=== PATIENT | female | born 1995 ===

== ENCOUNTER 2018-09-01 13:12 | Inpatient (IN) | payer MEDICAID, SELFPAY ==
[2018-09-01 13:42] VITALS: BMI 28.1
[2018-09-01] MEDS ORDERED: Labetalol 5mg/ml (4ml) IVP STA (13:48)
[2018-09-01] MEDS ORDERED: Magnesium Sul 40GM/1L SW 40 GM/1,000 ML ML IV ONE (13:49)
[2018-09-01] MEDS ORDERED: Magnesium Sulfate 4 gm/100 ml 4 GM/100 ML BAG IV ONE (13:49)
[2018-09-01] MEDS: Lactated Ringer's 1,000 ML IV SCH (14:15)
[2018-09-01] MEDS: Betamethasone Soluspan 30 mg/5mL Inj Susp IM SCH (14:34)
[2018-09-01 14:44] LABS: BASO # 0.1 K/uL (0.0-0.2); BASO % 0.9 % (0.0-2.0); EOS % 0.7 % (0.0-4.0); HEMOGLOBIN 12.7 g/dL (12.0-16.0); LYMPH # 2.1 K/uL (1.0-4.3); MEAN CELL VOLUME 85.1 fl (81.0-99.0); MEAN CORPUSCULAR HEMOGLOBIN 28.5 pg (27.0-31.0); MEAN CORPUSCULAR HGB CONC 33.5 g/dL (33.0-37.0); MEAN PLATELET VOLUME 11.8 fl (7.2-11.7); MONO # 0.6 K/uL (0.0-0.8); MONO % 9.1 % (0.0-10.0); NEUT % 58.3 % (50.0-75.0); NRBC % 0.1 % (0.0-0.0); RBC 4.45 Mil/uL (3.80-5.20); RED CELL DISTRIBUTION WIDTH 13.6 % (11.5-14.5); WHITE BLOOD COUNT 6.8 K/uL (4.8-10.8)
[2018-09-01 14:52] LABS: ALB/GLOB RATIO 1.2 (1.0-2.1); ALBUMIN 3.8 g/dL (3.5-5.0); BLOOD UREA NITROGEN 12 mg/dl (7-17); CALCIUM 9.4 mg/dL (8.4-10.2); GFR NON-AFRICAN AMERICAN > 60
[2018-09-01 14:54] LABS: ALT/SGPT 35 U/L (9-52); AST/SGOT 44 U/L (14-36)
[2018-09-01 16:22] LABS: SQUAMOUS EPITHIAL < 1 /hpf (0-5); URINE BACTERIA RARE (<OCC); URINE BILIRUBIN NEGATIVE (NEGATIVE); URINE BLOOD NEGATIVE (NEGATIVE); URINE CLARITY CLEAR (Clear); URINE COLOR STRAW (YELLOW); URINE GLUCOSE (UA) NEG (NEGATIVE); URINE LEUKOCYTE ESTERASE NEG Leu/uL (Negative); URINE PROTEIN NEGATIVE (NEGATIVE); URINE UROBILINOGEN 0.2-1.0 mg/dL (0.2-1.0)
--- NOTE | 2018-09-01 20:08 | OBADHP ---
Datetime: 09/01/2018 13:26 IP Chief Complaint Other: Steroid shot, Elevated BP Admit Comment, IP Provider: HPI: 23 YO with IUP at EGA 35.5 wks as per LMP 12/25/17, MARYSE 10/01/18 , who presents to [facility] sent by her primary provider to get first dose of Steroid shot as per MFM recommendation due to IUGR. Also incidentally during today's care visit patient was fou nd to have elevated BP in the 150s for the first time, patient denies JOSHUA, CP, SOB, abdominal pain, di zziness, or other symptoms of preeclampsia. Patient denies VB, LOF, CONTX. Patient endorses +FM. ROS: Unremarkable, except as per HPI. Care Provider: Dr Nobles PMH: Denies FMH: None SocialHx: Denies Tobacco/ETOH/Rec drug use. SURG: None Allergies: NKA MEDS: Vit LABS: HIV neg, RPR neg. GBS pending. ABO O+, ab neg PE GEN: NAD, appears comfortable HEENT: NCAT RESP: CTA b/l CV: RRR, S1S2 present, no murmurs Abdomen: Gravid EXT: No edema A/P 23 YO with IUP at EGA 35.5 wks as per LMP 12/25/17, MARYSE 10/01/18 presenting today sent by PMD f or Betamethasone first dose due to IUGR. Also patient found to have elevated BP today during visit and on initial evaluation in L_ D Impression: Preeclampsia Plan -Observation with monitoring of maternal VS: special attention to BP- SBP 150s -FHR monitoring: noted in 140s range -CBC stat -CMP stat -LDH stat -Labetalol 20 mg IVP x 1 dose, repeat BP in 10 min -Betamethasone 12 mg IM x1 -IVF LR -MAg IV as per preeclampsia tx Case discussed with attending MD Eryn PGY1 Patient was seen with the resident I agree with the note Lungs - PN: Normal Heart - PN: Normal General - PN: Normal FHR - Baseline A Provider: 140 Comments, ACOG Physical Exam: see triage comments IP Hx Assessment: The History has been Reviewed and is Current Vital Signs Provider: Reviewed Vital Signs Provider Details: BP 158/103 IP Chief Complaint: Other NICHD Accel Fetus A IP Provider: [id number] FHR Category Provider Fetus A: Category I NICHD Decel Fetus A IP Provider: None EGA AdmitDate IP: 35.5 IP Adm Impression: , intrauterine IP Admit Plan: Observation/Evaluation
[2018-09-02] MEDS: Betamethasone Soluspan 30 mg/5mL Inj Susp IM SCH (14:38)
[2018-09-02] MEDS ORDERED: Betamethasone Soluspan 30 mg/5mL Inj Susp IM ONE (14:38)
--- NOTE | 2018-09-02 16:23 | US ---
Date of service: 09/02/2018 PROCEDURE: Limited Ob ultrasound HISTORY: Follow up IUGR COMPARISON: None TECHNIQUE: Transvaginal pelvic ultrasound was performed. FINDINGS: Single live intrauterine fetus in cephalic presentation. Placenta is anterior. The cervical length is 2.8 cm. heart rate is 130 BPM. biophysical profile scoring: breathing movements: 2 movements: 2 tones: 2 Amniotic Fluid: 2 Total score: 8/8 IMPRESSION: Biophysical profile score is normal with a total score of 8/8.
--- NOTE | 2018-09-02 20:39 | OBPN ---
Datetime: 09/02/2018 20:36 IP Progress Plan: Continue present management IP Progress Note Comment: Patient's heart tracing category 1 and biophysical profile 8 out of 8. Patient without complaints at this time. Patient with a few isolated elevated blood pressures. Due to this, plan to continue observation and start 24-hour urine collection. I discussed plan with patient and all patient questions answered. Datetime: 09/02/2018 12:48 IP Progress Impression: Gest. HTN/PreEclampsia/Eclampsia FHR - Baseline A Provider: 140 Vital Signs Provider: Reviewed; Within Normal Limits Vital Signs Provider Details: BP 12PM 116/72 WNL NICHD Accel Fetus A IP Provider: 15X15 FHR Category Provider Fetus A: Category I NICHD Variability Prov Fetus A: Moderate 6-25bpm Datetime: 09/02/2018 09:54 NICHD Decel Fetus A IP Provider: None
[2018-09-03 19:41] LABS: URINE 24 HOUR TOTAL PROTEIN 552.5 mg/24hr (42-225)
[2018-09-03] MEDS ORDERED: Lactated Ringer's 1,000 ML IV ONE (20:05)
[2018-09-03] MEDS ORDERED: Magnesium Sulfate 4 gm/100 ml 4 GM/100 ML BAG IV ONE (20:08)
[2018-09-03] MEDS ORDERED: Magnesium Sul 40GM/1L SW 40 GM/1,000 ML ML IV ONE (20:08)
[2018-09-03] MEDS ORDERED: Lactated Ringer's 1,000 ML IV SCH (20:15)
[2018-09-03] MEDS ORDERED: Penicillin G Potassium 5 MU in Sodium Chloride 0.9% 50 ML IVPB ONE (21:24)
[2018-09-03] MEDS: Lactated Ringer's 1,000 ML IV SCH (21:35)
[2018-09-03] MEDS ORDERED: Oxytocin 30 UNIT in NS 500 ml 30 UNITS/500 ML BAG IV ONE (21:37)
[2018-09-03 21:44] LABS: BASO % 0.4 % (0.0-2.0); LYMPH # 1.9 K/uL (1.0-4.3); LYMPH % 20.5 % (20.0-40.0); MEAN CELL VOLUME 84.2 fl (81.0-99.0); MEAN CORPUSCULAR HEMOGLOBIN 28.5 pg (27.0-31.0); MEAN CORPUSCULAR HGB CONC 33.9 g/dL (33.0-37.0); MEAN PLATELET VOLUME 11.1 fl (7.2-11.7); MONO # 0.8 K/uL (0.0-0.8); MONO % 8.3 % (0.0-10.0); NEUT # 6.6 K/uL (1.8-7.0); NEUT % 70.8 % (50.0-75.0); NRBC % 0.1 % (0.0-0.0); RBC 4.2 Mil/uL (3.80-5.20); RED CELL DISTRIBUTION WIDTH 13.6 % (11.5-14.5); WHITE BLOOD COUNT 9.4 K/uL (4.8-10.8)
[2018-09-03] MEDS ORDERED: OXYTOCIN/0.9 % NS 20 UNIT/1,000 ML BAG IV SCH (21:45)
[2018-09-03 21:46] LABS: INR 0.8
[2018-09-03 22:10] LABS: PROTHROMBIN TIME 9.4 Seconds (9.8-13.1)
[2018-09-03 22:25] LABS: ALB/GLOB RATIO 1.2 (1.0-2.1); ALBUMIN 3.7 g/dL (3.5-5.0); BILIRUBIN,DIRECT 0.2 mg/ml (0.0-0.4); URIC ACID 6.6 mg/Dl (2.2-7.5)
[2018-09-03 23:23] LABS: SQUAMOUS EPITHIAL 1 /hpf (0-5); URINE BACTERIA OCC (<OCC); URINE BILIRUBIN NEGATIVE (NEGATIVE); URINE BLOOD NEGATIVE (NEGATIVE); URINE CLARITY CLEAR (Clear); URINE COLOR STRAW (YELLOW); URINE GLUCOSE (UA) NEG (NEGATIVE); URINE LEUKOCYTE ESTERASE NEG Leu/uL (Negative); URINE PROTEIN NEGATIVE (NEGATIVE); URINE UROBILINOGEN 0.2-1.0 mg/dL (0.2-1.0)
[2018-09-04 03:49] VITALS: O2SAT 98
[2018-09-04] MEDS: Lactated Ringer's 1,000 ML IV SCH ×3 (08:08→21:20)
[2018-09-04] MEDS: Magnesium Sul 40GM/1L SW 40 GM/1,000 ML ML IV ONE (08:49)
--- NOTE | 2018-09-04 10:16 | OBHP ---
Datetime: 09/03/2018 20:31 IP Adm Impression: , intrauterine IP Admit Plan: Admit to unit; Initiate labor induction protocol Admit Comment, IP Provider: 23 yo Female G1PO 36wk IUGR have been observed in PAT for past 2 day s due to uncontrolled HTn/Pre-eclampsia, WIll be admitted to L_D for induction of labor. During her s olivia patient blood pressure fluctuate in th 150s ( highest 163s/101). She have received Mg, fluid and have been closed monitored for any exacerbation. Due to her uncontrolled BP and IUGR, Delivery overwe ighs continuation of . Otherwise patient have no complains its er LMP 12/25/17, MARYSE 10/01/18, who presents to [facility] sent by her primary provider to get first dose of Steroid shot as per MFM recommendation due to IUGR. Otherwise patient denies JOSHUA, CP, SOB, abdominal pain, dizziness, or o ther symptoms of preeclampsia. Patient denies VB, LOF, ROS: Unremarkable, except as per HPI. Care Provider: Dr Nobles PMH: Denies FMH: None SocialHx: Denies Smoke,drink drug use. SURG: None Allergies: NKA MEDS: Vit LABS: HIV neg, RPR neg. GBS pending. ABO O+, ab neg PE GEN: NAD, tearful HEENT: NCAT RESP: CTA b/l CV: RRR, S1S2 present, no murmurs Abdomen: Gravid EXT: No edema A/P 23 yo Female G1PO 36wk IUGR, WIll be admitted to L_D for induction of labor due labile BP, with pr eeclampsia, and IUGR. Plan - Monitor BP, IF >165/105O -CBC stat -CMP stat -LDH stat - Preeclampsia work up -IVF LR -MAg IV as per preeclampsia tx - Cytotec 50mcg Q4h -Penecillin when active labor for GBS proph Ysabri PGY1 Case discussed with Dr Spencer Attending Note. Patient was seen and examined with Resident and I agree with the above finding Pelvic Type - PN: Adequate Extremities - PN: Normal Abdomen - PN: Normal Back - PN: Normal Breast - PN: Not Done Lungs - PN: Normal Heart - PN: Normal Thyroid - PN: Normal Neurologic - PN: Normal HEENT - PN: Normal General - PN: Normal Presentation-Admit: Vertex FHR - Baseline A Provider: 135 Comments, ACOG Physical Exam: Heart no extra heart sound Lung clear Abd nontender BS+ Cervix 1, 40, -3 Gestation - Est Wks by US: 36.0 EGA AdmitDate IP: 36.0 Vital Signs Provider: Reviewed Vital Signs Provider Details: High blood pressure IP Indication for Induction: IUGR; Gest. HTN/PreEclampsia/Eclampsia IP Chief Complaint: Signs/Symptoms Gestational HTN NICHD Variability Prov Fetus A: Moderate 6-25bpm NICHD Accel Fetus A IP Provider: 15X15 FHR Category Provider Fetus A: Category I NICHD Decel Fetus A IP Provider: None Dilatation, Provider: 1 Effacement, Provider: 40 Station, Provider: -3 Genitourinary Exam: Normal DTRs - PN: Normal
--- NOTE | 2018-09-04 10:23 | OBADHP ---
Datetime: 09/04/2018 10:21 Vital Signs Provider: Reviewed Datetime: 09/03/2018 20:31 Admit Comment, IP Provider: 23 yo Female G1PO 36wk IUGR have been observed in th PAT for past 2 day s due to uncontrolled HTn/Pre-eclampsia, WIll be admitted to L_D for induction of labor. During her s olivia patient blood pressure fluctuate in th 150s ( highest 163s/101). She have received Mg, fluid and have been closed monitored for any exacerbation. Due to her uncontrolled BP and IUGR, Delivery overwe ighs continuation of . Otherwise patient have no complains its er LMP 12/25/17, MARYSE 10/01/18, who presents to [facility] sent by her primary provider to get first dose of Steroid shot as per MFM recommendation due to IUGR. Otherwise patient denies JOSHUA, CP, SOB, abdominal pain, dizziness, or o ther symptoms of preeclampsia. Patient denies VB, LOF, ROS: Unremarkable, except as per HPI. Care Provider: Dr Nobles PMH: Denies FMH: None SocialHx: Denies Smoke,drink drug use. SURG: None Allergies: NKA MEDS: Vit LABS: HIV neg, RPR neg. GBS pending. ABO O+, ab neg PE GEN: NAD, tearful HEENT: NCAT RESP: CTA b/l CV: RRR, S1S2 present, no murmurs Abdomen: Gravid EXT: No edema A/P 23 yo Female G1PO 36wk IUGR, WIll be admitted to L_D for induction of labor due labile BP, with pr eeclampsia, and IUGR. Plan - Monitor BP, IF >165/105O -CBC stat -CMP stat -LDH stat - Preeclampsia work up -IVF LR -MAg IV as per preeclampsia tx - Cytotec 50mcg Q4h -Penecillin when active labor for GBS proph Ysabri PGY1 Case discussed with Dr Spencer Attending Note. Patient was seen and examined with Resident and I agree with the above Plan Pelvic Type - PN: Adequate Extremities - PN: Normal Abdomen - PN: Normal Back - PN: Normal Breast - PN: Not Done Lungs - PN: Normal Heart - PN: Normal Thyroid - PN: Normal Neurologic - PN: Normal HEENT - PN: Normal General - PN: Normal Presentation-Admit: Vertex FHR - Baseline A Provider: 135 Comments, ACOG Physical Exam: Heart no extra heart sound Lung clear Abd nontender BS+ Cervix 1, 40, -3 Gestation - Est Wks by US: 36.0 Vital Signs Provider Details: High blood pressure IP Chief Complaint: Signs/Symptoms Gestational HTN NICHD Variability Prov Fetus A: Moderate 6-25bpm NICHD Accel Fetus A IP Provider: [id number] FHR Category Provider Fetus A: Category I NICHD Decel Fetus A IP Provider: None Dilatation, Provider: 1 Effacement, Provider: 40 Station, Provider: -3 Genitourinary Exam: Normal DTRs - PN: Normal EGA AdmitDate IP: 36.0 IP Adm Impression: , intrauterine IP Admit Plan: Admit to unit; Initiate labor induction protocol
--- NOTE | 2018-09-04 11:27 | OBPN ---
Datetime: 09/04/2018 10:21 Dilatation, Provider: Ft Effacement, Provider: 40 Station, Provider: -3 Datetime: 09/04/2018 09:33 IP Progress Impression: Gest. HTN/PreEclampsia/Eclampsia IP Progress Plan: Continue present management; Induction; Anticipate Vaginal Delivery FHR - Baseline A Provider: 120-130 IP Progress Note Comment: Patient was seen and examined at bedside this AM. Due to her uncontrolled blood pressure patient was admitted to L_D for induction of labor. Patient received two dose of betam ethasone, Patient was started on Cytotec induction of labor protocol. Otherwise patient have no compl ains at present. She denies JOSHUA, dizziness, CP, SOB, abdominal pain or other acute complaint at presen t. Vitals S: Stable at this time 9:30AM BP 129/86 HR 59 Lab WNL Except for Alk phos 223H, prev 240H. Lactate dehydrogenase improved 24 hr urine 552.5 H elevated Physical examination Heart no extra heart sound Lung clear abd non-tender BS+ Cervix: 1, 40,-3 09/03/18 20:31 Plan -Continue maternal vitals monitoring -FHR: reassuring strip, continue monitoring -BPP: 8 -s/p 2 doses of betamethasone -Start Preeclampsia work up -loading dose of MG given and then c/w maintenance dose -Cytotec for induction - Induction of Labor as per protocol -Will give penicillin for prophylaxis when patient is in active labor. Plan discussed with attending MD Eryn PGY1 Vital Signs Provider: Reviewed Datetime: 09/03/2018 20:31 Gestation - Est Wks by US: 36.0 Presentation-Admit: Vertex Vital Signs Provider Details: High blood pressure NICHD Accel Fetus A IP Provider: [id number] FHR Category Provider Fetus A: Category I NICHD Variability Prov Fetus A: Moderate 6-25bpm NICHD Decel Fetus A IP Provider: None
--- NOTE | 2018-09-04 15:36 | OBPN ---
Datetime: 09/04/2018 15:32 IP Progress Impression: Normal progression of labor; Reassuring heart rate IP Procedures: Sterile Vag Exam IP Progress Plan: Continue present management; Induction Membranes, Provider: Intact FHR - Baseline A Provider: 120 Gestation - Est Wks by US: 36.1 Presentation-Admit: Vertex IP Progress Note Comment: Continue monitoring. Vital Signs Provider: Reviewed; Within Normal Limits NICHD Accel Fetus A IP Provider: 15X15 FHR Category Provider Fetus A: Category I NICHD Variability Prov Fetus A: Moderate 6-25bpm Dilatation, Provider: 1 Effacement, Provider: 60 Station, Provider: -3
[2018-09-04 23:32] LABS: HEMOGLOBIN 12.2 g/dL (12.0-16.0); MEAN CELL VOLUME 84.4 fl (81.0-99.0); MEAN CORPUSCULAR HEMOGLOBIN 28.3 pg (27.0-31.0); MEAN CORPUSCULAR HGB CONC 33.6 g/dL (33.0-37.0); RBC 4.32 Mil/uL (3.80-5.20); RED CELL DISTRIBUTION WIDTH 13.7 % (11.5-14.5); WHITE BLOOD COUNT 7.7 K/uL (4.8-10.8)
[2018-09-04 23:39] LABS: INR 0.8
[2018-09-04 23:41] LABS: PARTIAL THROMBOPLASTIN TIME 25.8 Seconds (25.6-37.1)
[2018-09-04 23:50] LABS: PROTHROMBIN TIME 9.5 Seconds (9.8-13.1)
[2018-09-05] MEDS ORDERED: Oxytocin 30 UNIT in NS 500 ml 30 UNITS/500 ML BAG IV ONE (03:00)
[2018-09-05] MEDS ORDERED: Magnesium Sul 40GM/1L SW 40 GM/1,000 ML ML IV ONE ×3 (03:34→19:41)
[2018-09-05] MEDS: Magnesium Sul 40GM/1L SW 40 GM/1,000 ML ML IV ONE ×2 (03:35→07:39)
[2018-09-05] MEDS ORDERED: Labetalol 5mg/ml (4ml) IVP STA ×2 (04:48→05:02)
[2018-09-05] MEDS ORDERED: Labetalol 5mg/ml (4ml) ONE (04:54)
--- NOTE | 2018-09-05 05:34 | OBPN ---
Datetime: 09/05/2018 05:00 IP Progress Impression Other: Uncontrolled BPs,Failed induction of labor IP Progress Impression: Reassuring heart rate; Gest. HTN/PreEclampsia/Eclampsia IP Informed Consent Obtain: Section Delivery IP Procedures: Sterile Vag Exam IP Progress Plan: Deliver- Section Membranes, Provider: Intact Contraction Comments Provider: irregular FHR - Baseline A Provider: 120s Gestation - Est Wks by US: 36.2 Presentation-Admit: Vertex IP Progress Note Comment: S: Patient report feeling some pelvic cramps. BPs have been creeping up with ranges from 160 -171/100-116mmHg. 2 doses of labetalol 20mg and 4omg administered O: Afebrile Heart: RRR Chest: CTA B/L FHR: Category 1 TOCO: Irregular SVE: /-3 Assessment: IUP at 36w2 day Preeclampsia with uncontrolled BPs S/P Cytotec X6 then Pitocin No Cervical Change. Plan: Deliver by Delivery Plan discussed with the patient through an delivery assistant on the phone. The procedure, risks and benefits were discussed. questions from patient answered. Consents obtained. will call order clerk to the OR. NICHD Accel Fetus A IP Provider: 15X15 FHR Category Provider Fetus A: Category I NICHD Variability Prov Fetus A: Moderate 6-25bpm Dilatation, Provider: 1 Effacement, Provider: 50 Station, Provider: -1 NICHD Decel Fetus A IP Provider: None
[2018-09-05] MEDS ORDERED: Morphine 5 mg/10 ml preservative-free Inj(Duramorph) ONE (05:36)
[2018-09-05] MEDS ORDERED: ePHEDrine 50 mg/ml Inj ONE (05:36)
[2018-09-05] MEDS ORDERED: ceFAZolin 2 GM in Sodium Chloride 0.9% 100 ML IVPB ONE (06:00)
[2018-09-05] MEDS ORDERED: Oxycodone/Acetaminophen 5/325 mg Tab PO PRN ×3 (07:04→08:21)
--- NOTE | 2018-09-05 07:47 | PCM.SURG1 ---
Surgeon's Initial Post Op Note - Surgeon's Notes Surgeon: Dr Spencer Senior Private Client Advisor: Ramsey Richardson MD Type of Anesthesia: Spinal Anesthesia Administered By: Dr Bradley Pre-Operative Diagnosis: IUP at 36w2d with severe Preeclampsia, unfavorable cervix Operative Findings: Live female with BW of 1960g and scores of 9 and 9, delivered in cephalic presentation, clear amniotic fluid, fundal p lacenta, Normal looking uterus ,fallopian tubes and ovaries. IVFluid intake- 1000mls. EBL- 600mls. Urine Output- 500mls Post-Operative Diagnosis: Same as preop diagnosis Operation Performed: Primary Low Transverse Section Specimen/Specimens Removed: Placenta Estimated Blood Loss: EBL {In ML}: 600 Post-Op Condition: Good Date of Surgery/Procedure: 09/05/18 Time of Surgery/Procedure: 07:49
--- NOTE | 2018-09-05 07:53 | OBDS ---
DELIVERY PERSONNEL Delivery Doctor: Mann Spencer MD Scrub Nurse: Isabel [employer] Consultant: Ma. Mary Beth Merrill RN Anesthesiologist: Nik Bradley MD MATERNAL INFORMATION Delivery Anesthesia: Spinal Medications in Delivery: Pitocin 30 units Placenta Cultured: Yes Maternal Complications: None Provider Comments: Uncomplicated Primary section with delivery of a viable female wi th BW of 1960gms and scores of 9 and 9, delivered in cephalic presentation, fundal placenta. Normal uterus ,tubes and ovaries EBL- 600mls Patient tolerated the procedure well. LABOR SUMMARY EDC: 10/01/2018 00:00 No. Babies in Womb: 1 Attempted: No Labor Anesthesia: None LABOR INFORMATION Reason for Induction: Gest. HTN/PreEclampsia/Eclampsia Cervical Ripening Agents: Cytotec @ 50 Oxytocin: Induction Group B Beta Strep: Not Done Steroids Given: Full Course; > 24 Hours before Delivery Reason Steroids Not Administered: Not Applicable MEMBRANES Membranes Rupture Method: Artificial Rupture of Membranes: 09/05/2018 06:26 Length of Rupture (hrs): 0.02 Amniotic Fluid Color: Clear Amniotic Fluid Amount: Moderate Amniotic Fluid Odor: Normal STAGES OF LABOR Stage 3 hrs: 0 Stage 3 min: 1 CSECTION DELIVERY Primary Indication: Severe PIH, Unfavorable Cervix CSection Urgency: Elective CSection Incidence: Primary Labor: Labor Elective: Elective CSection Incision: Lower Uterine Transverse Uterine Closure: Double-layer closure BABY A INFORMATION Infant Delivery Date/Time: 09/05/2018 06:27 Method of Delivery: Born in Route : No : N/A Forceps: N/A Vacuum Extraction: N/A Shoulder Dystocia : No SHOULDER DYSTOCIA BABY A Infant Delivery Date/Time: 09/05/2018 06:27 PRESENTATION/POSITION BABY A Presentation: Cephalic Cephalic Presentation: Vertex PLACENTA INFORMATION BABY A Placenta Delivery Time : 09/05/2018 06:28 Placenta Method of Delivery: Spontaneous Placenta Status: Delivered SCORES BABY A Heart Rate 1 min: >100 bpm Resp Effort 1 min: Good Cry Reflex Irritability 1 min: Cough or Sneeze or Pulls Away Muscle Tone 1 min: Active Motion Color 1 min: Body [place], Extremities Blue Resuscitation Effort 1 min: Tactile Stimulation SCORE 1 MIN: 9 Heart Rate 5 min: >100 bpm Resp Effort 5 min: Good Cry Reflex Irritability 5 min: Cough or Sneeze or Pulls Away Muscle Tone 5 min: Active Motion Color 5 min: Body [place], Extremities Blue Resuscitation Effort 5 min: N/A SCORE 5 MIN: 9 INFORMATION BABY A Gestational Age at Delivery: 36.0 Gestational Status: Outcome : Liveborn Condition : Stable Infant Sex: Female IDENTIFICATION/MEDS BABY A ID Band Number: [id number] ID Band Location: Left Leg; Left Arm WEIGHT/LENGTH BABY A Birthweight (gms): 1960 Weight (lb): 4 Infant Weight (oz): 5 CORD INFORMATION BABY A No. Cord Vessels: 3 Nuchal Cord : N/A Cord Blood Taken: Yes Suction: Mouth; Nose
[2018-09-05] MEDS ORDERED: DiphenhydrAMINE 50 mg/ml Inj IVP PRN (08:21)
[2018-09-05] MEDS ORDERED: OXYTOCIN/0.9 % NS 20 UNIT/1,000 ML BAG IV SCH (08:41)
[2018-09-05] MEDS: Multivitamin With Minerals Tab PO SCH (09:00)
[2018-09-05] MEDS ORDERED: OXYTOCIN/0.9 % NS 20 UNIT/1,000 ML BAG IV ONE (09:10)
[2018-09-05] MEDS: Simethicone 80 mg Chewtab PO SCH ×2 (10:00→18:02)
[2018-09-05] MEDS: Lactated Ringer's 1,000 ML IV SCH (12:15)
[2018-09-05] MEDS ORDERED: Lactated Ringer's 1,000 ML IV SCH ×2 (13:15→19:45)
--- NOTE | 2018-09-05 14:58 | OP ---
PROCEDURE DATE: 09/05/2018 PREOPERATIVE DIAGNOSES: Intrauterine at 36 weeks 2 days with severe preeclampsia, unfavorable cervix. POSTOPERATIVE DIAGNOSES: Intrauterine at 36 weeks 2 days with severe preeclampsia, unfavorable cervix. PROCEDURE DONE: Primary low transverse section performed on 09/05/2018. SURGEON: Mark Spencer MD MANAGER OF RADIOLOGY: Debra Mustafa (family practice resident). Assistance for this procedure was needed for exposure of tissues and help in the delivery of the baby. The insurance account assistant remained with the surgery throughout its entire length. TYPE OF ANESTHESIA: Spinal. ANESTHESIA ADMINISTERED BY: Breezy Bradley MD. OPERATIVE FINDINGS: Live female with weight of 1960 g and scores of 9 in the first and fifth minutes respectively. Baby was delivered in the cephalic presentation with a clear amniotic and fundal placenta. The uterus as well as both fallopian tubes and ovaries appeared normal. ESTIMATED BLOOD LOSS: 600 mL. INTRAVENOUS FLUID INTAKE: 1000 mL. URINE OUTPUT: About 500 mL of clear urine. COMPLICATIONS: There were no complications. SPECIMENS: The placenta was sent for histopathology. DESCRIPTION OF PROCEDURE: After obtaining the informed consent, the patient was sent to the OR with IV running and William catheter in place. The patient was sat on the OR table, and after adequate spinal anesthesia, was placed in a supine position with a left lateral tilt. The patient was then prepped and draped in the usual sterile fashion. A Pfannenstiel skin incision was made using the scalpel and this was followed through the subcutaneous tissue with a Bovie device. Once the rectus fascia was identified, a transverse incision was made in the midportion and this was extended to both sides by means of blunt dissection. The rectus fascia was lifted off the underlying rectus muscles both superiorly and inferiorly by means of blunt dissection and sharp dissection with Olivera scissors. The rectus muscles were in the midline to expose the peritoneum, which was tented between 2 Marisabel clamps and sharply entered and with good visualization of the bladder. The vesicouterine fold of peritoneum was identified. It was incised in a transverse fashion using Metzenbaum scissors and this was retracted inferiorly to expose the lower uterine segment. A low transverse incision was made in this area using the scalpel. The incision was sent through the myometrial layers so the amniotic membranes were identified. This incision was extended to both sides in a blunt fashion. The amniotic membranes were ruptured with a pickup forceps and the baby, which was positioned in the cephalic presentation, was delivered. The mouth and nostrils were bulb suctioned and the baby and the umbilical cord was clamped and cut. The baby was then delivered to the team. Umbilical cord blood was obtained for analysis, and after the placenta was removed from the uterus, the uterus was brought out of the abdominal cavity. The uterine cavity was cleaned of all debris using dry laparotomy pads. The uterine incision was then closed in two layers, the first layer in a running locked fashion and the second layer in a running fashion and imbricating the first layer. This was done until hemostasis was assured. The posterior and anterior surfaces of the uterus were irrigated with sterile water, and once hemostasis was assured, all laparotomy pads were removed from the abdomen and the uterus returned into the abdominal cavity. Attention was then turned on to the anterior abdominal wall, which was closed in layers with 2-0 Vicryl for the peritoneum and the rectus muscles. The rectus fascia was re-approximated using Vicryl #0. The subcutaneous tissue was brought together by using #2-0 plain catgut. The skin was closed in the subcuticular fashion using #4-0 Vicryl. All counts of instruments, laparotomy pads, and needles used were correct x3. The patient was sent to the recovery room awake and in stable condition. Mark Spencer MD EZEKIEL
[2018-09-05 14:59] LABS: HEMOGLOBIN 9.9 g/dL (12.0-16.0); MEAN CELL VOLUME 85.2 fl (81.0-99.0); MEAN CORPUSCULAR HEMOGLOBIN 28.5 pg (27.0-31.0); MEAN CORPUSCULAR HGB CONC 33.5 g/dL (33.0-37.0); RBC 3.48 Mil/uL (3.80-5.20); RED CELL DISTRIBUTION WIDTH 13.1 % (11.5-14.5); WHITE BLOOD COUNT 12.1 K/uL (4.8-10.8)
[2018-09-05] MEDS ORDERED: Magnesium Sulfate 1 gm in D5W 1 GM/100 ML BAG IVPB ONE (19:38)
[2018-09-06 06:37] LABS: HEMOGLOBIN 9.8 g/dL (12.0-16.0); MEAN CELL VOLUME 83.4 fl (81.0-99.0); MEAN CORPUSCULAR HGB CONC 34.7 g/dL (33.0-37.0); RBC 3.38 Mil/uL (3.80-5.20); RED CELL DISTRIBUTION WIDTH 13.4 % (11.5-14.5); WHITE BLOOD COUNT 9.7 K/uL (4.8-10.8)
[2018-09-06] MEDS: Simethicone 80 mg Chewtab PO SCH ×4 (09:09→21:56)
[2018-09-06] MEDS: Multivitamin With Minerals Tab PO SCH (09:09)
--- NOTE | 2018-09-06 09:42 | OBPPN ---
Datetime: 09/06/2018 08:15 PP Pain Prov: Within normal limits PP Nausea Prov: Denies PP Flatus Prov: No PP BM Prov: No PP Breasts Prov: Not Done PP Heart Prov: Normal PP Lungs Prov: Normal PP Abdomen/Uterus Prov: Normal PP Vulva/Perineum Prov: Not Done PP CVA Tenderness Prov: Not Done PP Extremities Prov: Normal PP C/S Incision Prov: Normal PP Comments Phys Exam Prov: see progress note PP Impression Prov: Induced Hypertension PP Plan Prov: Continue present management PP Progress Note Prov: 23 YO S/P due to preeclampsia with development of uncontrolled HTN, patient underwent on yesterday 09/05/18 today is her POD1. Patient was seen and examin ed at bedside today this morning. She is in NAD and appears comfortable. Overnight patient BP was not ed elevated 152/105 @2AM 152/102 @4AM, patient received labetalol x 2 oral, BP within normal limits a fter treatment, and we are currently closely monitoring BP. Patient denies JOSHUA, dizziness, CP, SOB, ab dominal pain, N/V or other acute medical complaint at present. Nunez in place with clear urine and go od output. Patient to start ambulating this morning. Patient receiving Mg drip as per preeclampsia protocol, will DC after 24h. VS: stable BP WNL since 4AM BP 116/85 @8:15AM GEN: NAD Cardio: RRR, S1S2 present, no murmurs noted Lungs: clear breath sounds b/l, no wheezing Abdomen: BS+, appropriate tenderness to palpitation, wound dressing removed shows sx incision well approximated, clean and intact. Uterus is firm and at the level of the umbilicus. EXT: No edema, Alison's negative NEURO/PSYCH: AAOx3, no grossly focal deficits, preserved affect and mood. A/P: 23 YO S/P due to preeclampsia with development of uncontrolled HTN, patient underwe nt on yesterday 09/05/18 today is her POD1. At present with close monitoring of BP. -Close monitoring of BP. Labetalol x 2 given overnight -encouraged ambulation -SCD while in bed -encouraged use of Incentive spirometer -Percocet 5/325 PO Q4H PRN pain -Encourage -Continue vit -DC nunez -DC Mg drip Case reviewed and discussed with attending MD Eryn PGY1 Attending addendum: I saw and examined the patient at bedside myself this morning. I reviewed the resident note above and agree with findings and management. DC magnesium gtt, monitor bp closely, rpt CBC to trend platelets encouraged and pumping Transfer to unit. Shannon Davis MD Vital Signs Provider PP: Reviewed
[2018-09-06] MEDS ORDERED: DiphenhydrAMINE 50 mg/ml Inj IVP PRN (15:00)
[2018-09-06] MEDS ORDERED: Oxycodone/Acetaminophen 5/325 mg Tab PO PRN (15:00)
[2018-09-06] MEDS: Oxycodone/Acetaminophen 5/325 mg Tab PO PRN (20:02)
[2018-09-07] MEDS: Simethicone 80 mg Chewtab PO SCH ×4 (04:33→21:40)
[2018-09-07 06:44] LABS: HEMOGLOBIN 9.5 g/dL (12.0-16.0); MEAN CELL VOLUME 84.7 fl (81.0-99.0); MEAN CORPUSCULAR HEMOGLOBIN 29.1 pg (27.0-31.0); MEAN CORPUSCULAR HGB CONC 34.4 g/dL (33.0-37.0); RBC 3.25 Mil/uL (3.80-5.20); RED CELL DISTRIBUTION WIDTH 13.4 % (11.5-14.5); WHITE BLOOD COUNT 8.4 K/uL (4.8-10.8)
[2018-09-07] MEDS: Multivitamin With Minerals Tab PO SCH (08:58)
--- NOTE | 2018-09-07 09:17 | OBPPN ---
Datetime: 09/07/2018 05:21 PP Pain Prov: Within normal limits PP Nausea Prov: Denies PP Flatus Prov: Yes PP BM Prov: Yes PP Breasts Prov: Not Done PP Heart Prov: Normal PP Lungs Prov: Normal PP Abdomen/Uterus Prov: Normal PP Lochia Prov: Normal PP Vulva/Perineum Prov: Not Done PP CVA Tenderness Prov: Normal PP Extremities Prov: Normal PP C/S Incision Prov: Normal PP Progress Prov: Normal PP Comments Phys Exam Prov: See note PP Impression Prov: Normal progression PP Plan Prov: Continue present management PP Progress Note Prov: 23 YO S/P due to preeclampsia with development of uncontrolled HTN, C-sec done on 09/05/18 . Patient seen and examined on POD2. No acute event overnight. Pt Blood p ressure improved today, running around low 130s. Patient report flatus and BM, lochia less than mense s. Patient denies JOSHUA, dizziness, CP, SOB, abdominal pain, N/V or other acute medical complaint at pre sent. William removed, Patient able to ambulate and pass urine with no difficulty. MG dc, Metaprolol Dc VS: Stable GEN: NAD Cardio: RRR, S1S2 present, no murmurs noted Lungs: clear breath sounds b/l, no wheezing Abdomen: BS+, appropriate tenderness to palpitation, incision no erythema noted clean and intact. Uterus is firm and at the level of the umbilicus. EXT: No edema, Alison's negative NEURO/PSYCH: AAOx3, no grossly focal deficits, preserved affect and mood. A/P: 23 YO S/P due to preeclampsia with development of uncontrolled HTN, C-sec done on . Patient seen and examined on POD2 No acute event overnight. -encouraged ambulation -SCD while in bed -encouraged use of Incentive spirometer -Percocet 5/325 PO Q4H PRN pain -Encourage -Continue vit Ysabri PGy1 Case discussed with Attending Patient was seen with the resident I agree with the note Vital Signs Provider PP: Reviewed; Within Normal Limits
[2018-09-07] MEDS: Oxycodone/Acetaminophen 5/325 mg Tab PO PRN (20:51)
[2018-09-08] MEDS: Simethicone 80 mg Chewtab PO SCH ×3 (04:50→09:35)
[2018-09-08] MEDS: Oxycodone/Acetaminophen 5/325 mg Tab PO PRN (05:25)
[2018-09-08 06:44] LABS: MEAN CELL VOLUME 85.3 fl (81.0-99.0); MEAN CORPUSCULAR HEMOGLOBIN 28.6 pg (27.0-31.0); MEAN CORPUSCULAR HGB CONC 33.5 g/dL (33.0-37.0); RBC 3.48 Mil/uL (3.80-5.20); RED CELL DISTRIBUTION WIDTH 13.7 % (11.5-14.5); WHITE BLOOD COUNT 9.3 K/uL (4.8-10.8)
--- NOTE | 2018-09-08 07:31 | OBPPN ---
Datetime: 09/08/2018 05:41 PP Pain Prov: Within normal limits PP Nausea Prov: Denies PP Flatus Prov: Yes PP BM Prov: Yes PP Breasts Prov: Not Done PP Heart Prov: Normal PP Lungs Prov: Normal PP Abdomen/Uterus Prov: Normal PP Lochia Prov: Normal PP Vulva/Perineum Prov: Not Done PP CVA Tenderness Prov: Normal PP Extremities Prov: Normal PP C/S Incision Prov: Normal PP Progress Prov: Normal PP Comments Phys Exam Prov: See note PP Impression Prov: Normal progression PP Plan Prov: Discharge PP Progress Note Prov: 23 YO S/P due to preeclampsia with development of uncontrolled HTN, C-sec done on 09/05/18 . Patient seen and examined on POD3. No acute event overnight. Pt Blood p ressure WNL. Patient report flatus and BM, lochia less than menses. Patient denies JOSHUA, dizziness, CP, SOB, abdominal pain, N/V or other acute medical complaint at present. Patient ambulate and pass uri ne with no difficulty. Patient PLT have been trending down last Plt 92 VS: Stable GEN: NAD Cardio: RRR, S1S2 present, no murmurs noted Lungs: clear breath sounds b/l, no wheezing Abdomen: BS+, appropriate tenderness to palpitation, incision no erythema noted clean and intact. Uterus is firm and at the level of the umbilicus. EXT: No edema, Alison's negative NEURO/PSYCH: AAOx3, no grossly focal deficits, preserved affect and mood. A/P: 23 YO S/P due to preeclampsia with development of uncontrolled HTN, C-sec done on . Patient seen and examined on POD3. -F/U CBC -encouraged ambulation -SCD while in bed -encouraged use of Incentive spirometer -Percocet 5/325 PO Q4H PRN pain -Encourage -Discharge home today If plt are stable Ysbill PGy1 Case discussed with Attending OB Hospitalist Addendum: Pt seen and examined by me. Agree w/ above. POD 3 s/p primary c/s for se juan pablo QUINONES, doing well, breast and bottle feeding. Discharge home today. (ES) Vital Signs Provider PP: Reviewed; Within Normal Limits
[2018-09-08] MEDS: Multivitamin With Minerals Tab PO SCH (08:40)
--- NOTE | 2018-09-08 09:55 | OBDCSUM ---
Datetime: 09/08/2018 07:05 Discharged to, Provider: Home Follow up at, Provider: [facility] Disch Instr Diet: Regular Discharge Instructions, Provider: Routine instructions given Discharge Diagnosis, Provider: Delivery Discharge Time: 09/08/2018 09:54 Follow up in weeks, Provider: 1 week Contraception discussed, Prov: Yes Disch Activity Restrictions: No lifting; Minimize stair-climbing; Nothing in vagina - Carlyle, t taina colon Discharge Comment, Provider: EGA: 36.2wk Diagnosis: Urgent C-SEC Due to Preeclampsia with HTN uncontrolled risk factors: none : 09/05/18 Female [age]gm Post- Summary: No complications during post- period. Lochia less than menses. Pt able to pass gas, BM, ambulate and pass urine. Tolerate regular diet, Fundus firm below umbilicus level. CBC post-: 9.5/27.5 Discharge Instructions: PNV 1 tab PO daily Ibuprofen 600mg 1 tab prn for mild-mod pain Percocet 5-325 mg Po given for severe pain Will give ferrous sulfate ER precautions: If excessive bleeding or fever without relief from medication, go to ED PT was urged if feeling sad, mood swing, depression, neglect of baby, suicidal thoughts, homicidal thought should go to ER or call 911 for help F/U with OBGYN in 1 week for wound care F/U 4-6 week for PP visit
[2018-09-08 16:24] VITALS: BP 122/85; PULSE 66; RESP 20; TEMP 97.7
== END 2018-09-08 12:18 | disposition home or self-care (01) | DRG 540 ==
LOC: H.EROB2 13:12 → H.L&D 09-03 09:35 → H.EROB2 09-03 20:16 → H.OB/GYN 09-05 20:06 → H.L&D 09-05 20:07 → H.OB/GYN 09-06 09:43
PROVIDERS: ADMIT Obstetrics & Gynecology; ATTEND Obstetrics & Gynecology
PROC: 4A1HXCZ Monitoring of Products of Conception, Cardiac Rate, External Approach (ICD-10-PCS; 2018-09-03)
PROC: 10D00Z1 Extraction of Products of Conception, Low, Open Approach (ICD-10-PCS; principal; 2018-09-05)
DX: O14.14 Severe pre-eclampsia complicating childbirth (principal); O60.14X0 Preterm labor third trimester with preterm delivery third trimester, not applicable or unspecified; Z37.0 Single live birth; O36.5930 Maternal care for other known or suspected poor fetal growth, third trimester, not applicable or unspecified; Z3A.36 36 weeks gestation of pregnancy